=== PATIENT | female | born 1945 | race African-American/Black ===

== ENCOUNTER 2018-05-16 07:51 | Observation (INO) | payer OTHER ==
[~2018-05-16] VITALS: Ht 165.1 cm; Wt 116.0 kg
[~2018-05-16 07:51] MED LIST: HYDROCHLOROTHIA50 MG PO; LISINOPRIL40 MG PO; MOTRIN600 MG PO; NAPROXEN500 MG PO; NEXIUM40 MG PO; PERCOCET 5/31 TABLET PO; ROXICODONE5 MG PO; TENORMIN25 MG PO
[2018-05-16 08:26] LABS: BASOPHIL (%) 0.6 % (0-1); BASOPHIL COUNT 0.1 K/uL (0-0.1); EOSINOPHIL (%) 0.6 % (0-5); EOSINOPHIL COUNT 0.1 K/uL (0-0.3); HEMATOCRIT 36.4 % (36.0-46.0); HEMOGLOBIN 11.8 G/DL (11.9-15.5); IMMATURE GRANULOCYTE (%) 0.3 % (0.0-0.7); LYMPHOCYTE (%) 26.8 % (15-42); LYMPHOCYTE COUNT 2.1 K/uL (1.0-2.8); MCH 26.1 PG (29.0-34.0); MCHC 32.4 G/DL (30.0-36.0); MCV 80.5 FL (83-99); MONOCYTE (%) 7.2 % (3-12); MONOCYTE COUNT 0.6 K/uL (0-0.8); NEUTROPHIL (%) 64.5 % (45-76); NEUTROPHIL COUNT 5.1 K/uL (1.8-6.4); PLATELET COUNT 343 K/uL (156-360); RBC DIS.WIDTH-CV 14.5 % (11.8-14.6); RBC DIS.WIDTH-SD 42.5 % (39-53); RED BLOOD COUNT 4.52 M/uL (3.80-5.20)
[2018-05-16 08:49] LABS: CHLORIDE 103 MEQ/L (99-109); SODIUM 141 MEQ/L (136-147)
[2018-05-16 08:53] LABS: TROP-I INTERPRETATION NEGATIVE; TROPONIN-I 0.02 ng/mL (0.0-0.30)
[2018-05-16 08:55] LABS: CREATININE 0.8 MG/DL (0.6-1.3); GFR ESTIMATE (CALCULATED) > 59 mL/min/; GLUCOSE 107 mg/dL (70-99); UREA NITROGEN (BUN) 10 mg/dL (9-23)
[2018-05-16] MEDS ORDERED: FISH OIL 1,0001 EAC7 PO (10:52)
[2018-05-16] MEDS ORDERED: CALCIUM 600 +1 EA12 PO (10:54)
[2018-05-16 12:56] VITALS: BP 163/89
[2018-05-16 15:58] VITALS: BP 162/64
[2018-05-16 18:16] LABS: TROP-I INTERPRETATION NEGATIVE; TROPONIN-I < 0.01 ng/mL (0.0-0.30)
[2018-05-17 00:10] VITALS: BP 185/85
[2018-05-17 00:46] VITALS: BP 176/79
[2018-05-17 01:19] LABS: TROP-I INTERPRETATION NEGATIVE; TROPONIN-I < 0.01 ng/mL (0.0-0.30)
[2018-05-17 04:09] VITALS: BP 139/73
[2018-05-17 05:24] LABS: HEMATOCRIT 37.2 % (36.0-46.0); HEMOGLOBIN 11.9 G/DL (11.9-15.5); MCH 25.8 PG (29.0-34.0); MCV 80.7 FL (83-99); PLATELET COUNT 373 K/uL (156-360); RBC DIS.WIDTH-CV 14.6 % (11.8-14.6); RBC DIS.WIDTH-SD 42.4 % (39-53); RED BLOOD COUNT 4.61 M/uL (3.80-5.20); WHITE BLOOD COUNT 7.2 K/uL (4.1-10.2)
[2018-05-17 05:47] LABS: CHLORIDE 100 MEQ/L (99-109); CREATININE 0.7 MG/DL (0.6-1.3); GFR ESTIMATE (CALCULATED) > 59 mL/min/; GLUCOSE 94 mg/dL (70-99); HDL CHOLESTEROL 59 MG/DL (Desirable>=50); LDL CHOLESTEROL 123 mg/dL (Desirable<100); NON-HDL CHOLESTEROL 141 mg/dL (Desirable<160); POTASSIUM 3.4 MEQ/L (3.7-5.4); SODIUM 142 MEQ/L (136-147); TOTAL CHOLESTEROL 200 mg/dL (Desirable<200); TRIGLYCERIDES 91 MG/DL (Normal: <150); UREA NITROGEN (BUN) 9 mg/dL (9-23)
[2018-05-17 07:33] VITALS: BP 123/66
[2018-05-17 08:13] LABS: MAGNESIUM 1.8 mg/dl (1.3-2.7)
[2018-05-17 09:51] LABS: HEMOGLOBIN A1c (GLYCOHEMOGLOB) 5.8 % (Below 5.7)
[2018-05-17] MEDS ORDERED: ASPIR-LOW81 MG PO ×2 (11:23→14:03)
[2018-05-17] MEDS ORDERED: LOPRESSOR25 MG PO (11:23)
[2018-05-17 11:31] VITALS: BP 182/81
[2018-05-17] MEDS ORDERED: NITROGLYCERIN0.4 MG SL (13:02)
== END 2018-05-17 14:20 | disposition home or self-care (01) ==
LOC: EME 07:51 → EDOF 10:36 → ENRESERV 10:42 → 4SOUTH 11:39
PROVIDERS: Emergency Medicine; Internal Medicine
DX: R07.9 Chest pain, unspecified (principal); I10 Essential (primary) hypertension; R73.03 Prediabetes; K21.9 Gastro-esophageal reflux disease without esophagitis; G47.33 Obstructive sleep apnea (adult) (pediatric); I87.2 Venous insufficiency (chronic) (peripheral); Z90.49 Acquired absence of other specified parts of digestive tract; Z90.710 Acquired absence of both cervix and uterus; Z82.49 Family history of ischemic heart disease and other diseases of the circulatory system
CPT/HCPCS: 71045; 71275; 80048; 80061; 82948; 83036; 83735; 84484; 85025; 85027; 85379; 85730; 93005; 99281; 99285; G0378; J1650